=== PATIENT | female | born 1950 | race Caucasian/White ===

== ENCOUNTER 2018-05-01 15:41 | Emergency (ER) | payer BC, MEDICARE ==
[~2018-05-01] VITALS: Ht 167.6 cm; Wt 53.0 kg
--- NOTE | 2018-05-01 15:54 | NUR ---
LATE ENTRY FOR 15:54. BIBA. PT C/O SUDDEN ONSET OF GENERALIZED WEAKNESS, CHEST DISCOMFORT AND DIAPHORESIS AT [facility] RESORT AT 12 PM. PT GIVEN 450 ML NS, 4MG ODT BY IV PUSH BY EMS AND 325 MG ASPIRIN BY PO BY EMS. NO SYNCOPE OR INJURY. ALL MONITORS IN PLACE. CALL LIGHT WITHIN REACH.
[2018-05-01] MEDS ORDERED: ASPIRIN 81 MG TABLET CHEW ONE (16:22)
[2018-05-01] MEDS ORDERED: SODIUM CHLORIDE FLUSH 10ML SYR IVF ONE (16:30)
[2018-05-01] MEDS ORDERED: PLEASE ENTER ALLERGIES MC SCH (16:30)
[2018-05-01] MEDS ORDERED: ASPIRIN 81 MG TABLET CHEW PO ONE (16:30)
[2018-05-01 16:33] LABS: BASOPHILS % (AUTO) 0 % (0-1); EOSINOPHILS # (AUTO) 0.03 x10^3/uL (0-0.4); EOSINOPHILS % (AUTO) 0 % (1-7); LYMPHOCYTES # (AUTO) 0.79 x10^3/uL (1-3.4); LYMPHOCYTES % (AUTO) 8 % (22-44); MD NO; MEAN CORPUSCULAR HEMOGLOBIN 32.4 pg (27.0-34.8); MEAN CORPUSCULAR HGB CONC 33.6 g/dL (32.4-35.8); MEAN CORPUSCULAR VOLUME 96.4 fL (80-100); MEAN PLATELET VOLUME 8.1 fL (7.4-10.4); MONOCYTES # (AUTO) 0.26 x10^3/uL (0.2-0.8); MONOCYTES % (AUTO) 3 % (2-9); NEUTROPHILS # (AUTO) 8.41 x10^3/uL (1.8-6.8); NEUTROPHILS % (AUTO) 89 % (42-75); PLATELET COUNT 226 x10^3/uL (130-400); RED BLOOD COUNT 4.05 x10^6/uL (3.82-5.3); RED CELL DISTRIBUTION WIDTH 13.4 % (9.6-15.2)
[2018-05-01 16:55] LABS: ALBUMIN 3.6 g/dL (3.4-5.0); ANION GAP 7 mmol/L (5-15); CALCIUM 8.2 mg/dL (8.5-10.1); CHLORIDE 110 mmol/L (98-107)
[2018-05-01 17:00] LABS: ALANINE AMINOTRANSFERASE 31 U/L (12-78); ALKALINE PHOSPHATASE 81 U/L (45-117); BILIRUBIN,TOTAL 0.1 mg/dL (0.2-1.0); TOTAL PROTEIN 7.1 g/dL (6.4-8.2); TROPONIN I < 0.015 ng/mL (0.000-0.045)
--- NOTE | 2018-05-01 17:13 | NUR ---
PT AMB TO BR WITH STEADY GAIT FOR UA. PT AOX4. RESPS EVEN AND UNLABORED. DENIES ANY NEEDS AND CONCERNS AT THIS TIME. UA SENT.
[2018-05-01 17:23] LABS: MICROSCOPIC AUTO
[2018-05-01 17:24] LABS: CULTURE INDICATED? NO
--- NOTE | 2018-05-01 18:13 | NUR ---
PT RESTING IN GURNEY. RESPS EVEN AND UNLABORED. PT AOX4. NSR ON TENNIS PROFESSIONAL WITHOUT ECTOPY. PT DENIES PAIN. PT HAS NOT HAD ANY STOOL DURING THIS VISIT. ALL RESULTS BACK. AWAITING EDMD AND DISPO.
--- NOTE | 2018-05-01 18:22 | NUR ---
pt aox4. neuro intact. resps even and unlabored. hailey rn explaining dc instructions at this time. pt family at bedside.
[2018-05-01 18:25] VITALS: BP 140/62
--- NOTE | 2018-05-01 18:29 | NUR ---
pt given dc instructions. admission recommended to pt and family by JOSHUA Caballero for syncope/cp workup. Pt and family demonstrate understanding of MD and RN education and education regarding risks of leaving, pt and family refuse admission. Pt signed AMA form. Pt a&ox4, neuro intact. pt denies pain. resps even and unlabored. pt speaking in full sentences, clearly. nsr on residential monitor with no ectopy. piv dc'd with tip intact. Pt amb to dc desk with steady gait accompanied by family. nadn at dc.
== END 2018-05-01 18:30 | disposition home or self-care (01) ==
LOC: ED 18:24
DX: R42 Dizziness and giddiness (principal); R07.89 Other chest pain; E78.00 Pure hypercholesterolemia, unspecified; R55 Syncope and collapse
CPT/HCPCS: 36415; 71045; 80053; 81001; 83605; 84145; 84484; 85025; 87040; 93005; 99284